=== PATIENT | male | born 1960 | race Caucasian/White ===

== ENCOUNTER 2016-04-04 14:13 | Emergency (ER) | payer MEDICARE ==
--- NOTE | 2016-04-04 14:36 | Emergency Department Record ---
History of Present Illness - General Chief complaint: Eye Problem Stated complaint: L EYE AREA SWOLLEN Time Seen by Provider: 04/04/16 14:28 Source: Patient Mode of Arrival: Ambulatory Limitations: No limitations - History of Present Illness Initial comments: 55 yo male presents with left eye swelling. He woke up with the symptoms. No fevers. He reports he has has some similar symptoms in the past. No vision changes. He does not wear contacts. No FB. MD chief complaint: Eye pain, Eye redness Onset/Timin -: Hour(s) Onset Description: Awoke with symptoms Location: Left eye Place: Home If Injury: None Consistency: Constant Context: Other Associated Symptoms: None Treatments Prior to Arrival: None - Related Data Home Medications Medication Instructions Recorded Confirmed Last Taken Cholecalciferol (Vitamin D3) 2,000 unit PO DAILY 11/04/14 04/04/16 Unknown [Vitamin D3] Multivitamin [Daily Multiple 1 each PO DAILY 11/04/14 04/04/16 Unknown Vitamin] Lactobacillus Combination No.4 1 each PO DAILY cap 07/21/15 04/04/16 Unknown [Probiotic] Previous Rx's Medication Instructions Recorded Cephalexin [Keflex] 500 mg PO TID #21 cap 04/04/16 Allergies Allergy/AdvReac Type Severity Reaction Status Date / Time Sulfa (Sulfonamide Allergy Intermediate RASH Unverified 05/03/15 12:56 Antibiotics) naproxen AdvReac Mild ITCHING Unverified 05/03/15 12:56 Travel Screening - Travel/Exposure Within Last 30 Days Have you traveled within the last 30 days?: No Review of Systems Constitutional: Denies: Chills, Fever, Malaise, Weakness Eyes: Reports: Eye discharge ENT: Denies: Congestion, Ear pain, Epistaxis, Throat pain Respiratory: Denies: Cough, Dyspnea, Hemoptysis, Stridor, Wheezes Cardiovascular: Denies: Chest pain, Palpitations, Syncope Endocrine: Denies: Fatigue Gastrointestinal: Denies: Abdominal pain, Diarrhea, Nausea, Vomiting Genitourinary: Denies: Dysuria, Frequency, Hematuria Musculoskeletal: Denies: Arthralgia, Back pain, Joint swelling, Myalgia Skin: Denies: Bruising, Change in color, Rash Neurological: Denies: Headache Psychiatric: Denies: Anxiety, Suicidal thoughts Hematological/Lymphatic: Denies: Easy bleeding, Easy bruising, Swollen glands Past Medical History - SOCIAL HISTORY Smoking Status: Current every day smoker Alcohol Use: Occassional - RESPIRATORY Hx Respiratory Disorders: Yes Hx COPD: Yes - CARDIOVASCULAR Hx Cardio Disorders: No - NEURO Hx Neuro Disorders: Yes Hx Headaches: Yes (migraines) - GI Hx GI Disorders: No - Hx Genitourinary Disorders: No - ENDOCRINE Hx Endocrine Disorders: Yes Hx Thyroid Disease: Yes (hypo) - MUSCULOSKELETAL Hx Musculoskeletal Disorders: Yes Hx Arthritis: Yes (RA) - PSYCH Hx Psych Problems: No - HEMATOLOGY/ONCOLOGY Hx Hematology/Oncology Disorders: No Family Medical History Any Significant Family History?: No Physical Exam - General General Appearance: Alert, Oriented x3, Cooperative, No acute distress Limitations: No limitations - Head Head exam: Normal inspection - Eye Eye exam: PERRL, Conjunctival injection (very minimal, faint), EOMI, Periorbital swelling. negative: Nystagmus, Periorbital tenderness, Scleral icterus Visual acuity (L) = 20/: 20 Visual acuity (R) = 20/: 20 With correction: Yes IOP measured with: other (no stain uptake on examination) - ENT ENT exam: Normal exam, Mucous membranes moist, Normal external ear exam, Normal orophraynx Ear exam: Normal external inspection. negative: External canal tenderness Nasal Exam: Normal inspection. negative: Discharge, Sinus tenderness Mouth exam: Normal external inspection, Tongue normal Teeth exam: Normal inspection. negative: Dental caries Throat exam: Normal inspection. negative: Tonsillar erythema, Tonsillar exudate Course Vital Signs 04/04/16 14:21 Temperature 98.2 F Pulse Rate 95 H Respiratory 18 Rate Blood Pressure 147/93 Pulse Ox 96 - Reevaluation(s) Reevaluation #1: The patient was seen and examined No stain up take Anterior chamber appears clear Minimal to no injection He has lower lid edema No pus or exudate EOMI fully No right eye involvement VA 20/20 04/04/16 14:38 Disposition Disposition: Discharge Clinical Impression: Acute conjunctivitis Qualifiers: Acute conjunctivitis type: unspecified Laterality: left Qualified Code(s): H10.32 - Unspecified acute conjunctivitis, left eye Disposition: Home, Self-Care Condition: (1) Good Instructions: Conjunctivitis (ED) Additional Instructions: Return in the next 24 hours if worse or not better Use the Antibiotic drops every 4 hours with 2 drops Keflex three times daily Prescriptions: Cephalexin [Keflex] 500 mg PO TID #21 cap Forms: Patient Portal Access Time of Disposition: 14:41
[2016-04-04] MEDS: PROPARACAINE HCL OPTH 15ML BTL OPTH ONE (14:51)
[2016-04-04] MEDS: GENTAMICIN SULFATE 0.3% OPTH 5 ML BTL OPTH SCH (14:51)
== END 2016-04-04 14:53 | disposition home or self-care (01) ==
LOC: ER 14:13
DX: H10.32 Unspecified acute conjunctivitis, left eye (principal)
CPT/HCPCS: 99282

== ENCOUNTER 2018-04-10 13:38 | Emergency (ER) | payer MEDICARE ==
[2018-04-10] MEDS ORDERED: NITROGLYCERIN 0.4MG SL TABLET #25 BTL SL ONE (14:17)
[2018-04-10] MEDS ORDERED: ASPIRIN 81 MG CHEWABLE TABLET PO ONE (14:17)
--- NOTE | 2018-04-10 14:18 | Emergency Department Record ---
History of Present Illness - General Chief complaint: Extremity Problem Stated complaint: LT ARM NUMBNESS AND TINGLING IN THE NECK Time Seen by Provider: 04/10/18 14:11 Source: Patient, RN notes reviewed Mode of Arrival: Ambulatory - History of Present Illness Initial comments: numbness in the jaw and left arm and started 2 days ago and much worse today and he has RA and has chronic chest pain and he thinks his chest pain is inflamation of the ribs and RA. No diaphorisis, No previous heart problems and recently diagnosesed for hypertension. Patient denies being SOB but he sounds SOB. Stopped smoking one year ago. he was smoking 2 plus packs per day for 25 years. slight headache . He states he has carpal tunnel syndrome and his 4th and 5th fingers are chronically numb. Onset/Timin -: Days(s) Location: Left, Arm History of Same: No Radiation: None Consistency: Intermittent Improves with: Nothing Worsens with: Nothing Associated Symptoms: Denies other symptoms - Related Data Allergies Allergy/AdvReac Type Severity Reaction Status Date / Time Sulfa (Sulfonamide Allergy Intermediate RASH Verified 04/10/18 13:46 Antibiotics) naproxen AdvReac Mild ITCHING Verified 04/10/18 13:46 Travel Screening - Travel/Exposure Within Last 30 Days Have you traveled within the last 30 days?: No - Travel/Exposure Within Last Year Have you traveled outside the [place] in the last year?: No - Additonal Travel Details Have you been exposed to anyone with a communicable illness?: No - Travel Symptoms Symptom Screening: None Review of Systems Reviewed: No additional complaints except as noted below Constitutional: Reports: As per HPI. Denies: Chills, Fever, Malaise, Night sweats, Weakness, Weight change Eyes: Reports: As per HPI. Denies: Eye discharge, Eye pain, Photophobia, Vision change ENT: Reports: As per HPI. Denies: Congestion, Dental pain, Ear pain, Epistaxis , Hearing loss, Throat pain Respiratory: Reports: As per HPI. Denies: Cough, Dyspnea, Hemoptysis, Stridor, Wheezes Cardiovascular: Reports: As per HPI, Other (atypical chest pain). Denies: Arrhythmia, Chest pain, Dyspnea on exertion, Edema, Murmurs, Orthopnea, Palpitations, Paroxysmal nocturnal dyspnea, Rheumatic Fever, Syncope Endocrine: Reports: As per HPI. Denies: Fatigue, Heat or cold intolerance, Polydipsia, Polyuria Gastrointestinal: Reports: As per HPI. Denies: Abdominal pain, Constipation, Diarrhea, Hematemesis, Hematochezia, Melena, Nausea, Vomiting Genitourinary: Reports: As per HPI. Denies: Dysuria, Frequency, Hematuria, Incontinence, Retention, Testicular pain, Testicular mass, Urgency Musculoskeletal: Reports: As per HPI. Denies: Arthralgia, Back pain, Gout, Joint swelling, Myalgia, Neck pain Skin: Reports: As per HPI. Denies: Bruising, Change in color, Change in hair/ nails, Lesions, Pruritus, Rash Neurological: Reports: As per HPI. Denies: Abnormal gait, Confusion, Headache, Numbness, Paresthesias, Seizure, Tingling, Tremors, Vertigo, Weakness Psychiatric: Reports: As per HPI. Denies: Anxiety, Auditory hallucinations, Depression, Homicidal thoughts, Suicidal thoughts, Visual hallucinations Hematological/Lymphatic: Reports: As per HPI. Denies: Anemia, Blood Clots, Easy bleeding, Easy bruising, Swollen glands Past Medical History - SOCIAL HISTORY Smoking Status: Former smoker Alcohol Use: Heavy Drug Use: None - RESPIRATORY Hx Respiratory Disorders: Yes Hx COPD: Yes - CARDIOVASCULAR Hx Cardio Disorders: No - NEURO Hx Neuro Disorders: Yes Hx Headaches: Yes (migraines) - GI Hx GI Disorders: No - Hx Genitourinary Disorders: No - ENDOCRINE Hx Endocrine Disorders: Yes Hx Thyroid Disease: Yes (hypo) - MUSCULOSKELETAL Hx Musculoskeletal Disorders: Yes Hx Arthritis: Yes (RA) - PSYCH Hx Psych Problems: No - HEMATOLOGY/ONCOLOGY Hx Hematology/Oncology Disorders: No Family Medical History Any Significant Family History?: No Physical Exam - General General Appearance: Alert, Oriented x3, Cooperative, No acute distress - Head Head exam: Normal inspection - Eye Eye exam: Normal appearance, PERRL Pupils: Normal accommodation - ENT ENT exam: Normal exam, Mucous membranes moist, Normal external ear exam, Normal orophraynx, TM's normal bilaterally Ear exam: Normal external inspection. negative: External canal tenderness Nasal Exam: Normal inspection. negative: Discharge, Sinus tenderness Mouth exam: Normal external inspection, Tongue normal Teeth exam: Normal inspection. negative: Dental caries Throat exam: Normal inspection. negative: Tonsillar erythema, Tonsillar exudate - Neck Neck exam: Normal inspection, Full ROM. negative: Tenderness - Respiratory Respiratory exam: Normal lung sounds bilaterally. negative: Respiratory distress - Cardiovascular Cardiovascular Exam: Regular rate, Normal rhythm, Normal heart sounds, Other ( pain on palpation of anterior chest wall and he said that is arthritis) - GI/Abdominal GI/Abdominal exam: Soft, Normal bowel sounds. negative: Tenderness - Rectal Rectal exam: Deferred - exam: Deferred - Extremities Extremities exam: Normal inspection, Full ROM, Normal capillary refill. negative: Tenderness - Back Back exam: Reports: Normal inspection, Full ROM. Denies: Muscle spasm, Rash noted, Tenderness - Neurological Neurological exam: Alert, Normal gait, Oriented X3, Reflexes normal - Psychiatric Psychiatric exam: Normal affect, Normal mood - Skin Skin exam: Dry, Intact, Normal color, Warm Course Vital Signs 04/10/18 13:49 Temperature 98.1 F Pulse Rate 110 H Respiratory 20 Rate Blood Pressure 154/71 Pulse Ox 96 patient is refusing to stay any longer and I talked to him about the risk of a heart attack and he could are be a cardiac cripple and he said he will come back as an out patient.. I also told if his neck numbness and laft arm numbness comes back return to [facility] ED. The one nitro took his jaw numbness and left arm numbness away. Medical Decision Making - Lab Data Result diagrams: 04/10/18 13:50 04/10/18 13:50 Disposition Clinical Impression: Atypical chest pain Disposition: Home, Self-Care Condition: (1) Good Instructions: Angina (ED) Additional Instructions: follow up with family DR in 2-[address] Paredes consult outpatient will be set up and they will call you with an appointment return if numbness comes back patient is signing out AMA Forms: Patient Portal Access Time of Disposition: 17:17 Quality - Quality Measures Quality Measures: N/A - Blood Pressure Screening Does Patient Have Any of the Following: No, Active Dx of HTN Blood Pressure Classification: Hypertensive Reading Systolic Measurement: 154 Diastolic Measurement: 71 Screening for High Blood Pressure: Patient Exclusion, Hx of HTN [G9744]
[2018-04-10 15:03] LABS: BASO % 0.6 % (0-6); EOS % 1.3 % (0-6); LYMPH % 20.6 % (16-45); MEAN CELL VOLUME 90.2 fl (81-97); MEAN CORPUSCULAR HEMOGLOBIN 30.7 pg (27-33); MEAN PLATELET VOLUME 9.8 fl (7.4-10.4); MONO % 9.5 % (0-9); PLATELET COUNT 237 K/uL (130-400); RED BLOOD COUNT 5.21 M/uL (4.40-5.70); RED CELL DISTRIBUTION WIDTH 13.1 % (11.5-14.5); WHITE BLOOD COUNT W/O DIFF 7.9 K/uL (4.2-12.2)
[2018-04-10 15:15] LABS: BLOOD UREA NITROGEN 13 mg/dL (6-20); CREATININE 0.8 mg/dL (0.7-1.2); EST GLOMERULAR FILTRATION RATE > 60 mL/min
[2018-04-10 15:18] LABS: GLUCOSE,RANDOM 161 mg/dL (74-109)
[2018-04-10 15:23] LABS: CKMB 2.3 ng/mL (<6.73)
== END 2018-04-10 17:51 | disposition home or self-care (01) ==
LOC: ER 13:38
DX: R07.89 Other chest pain (principal); R20.0 Anesthesia of skin; R51 Headache; I10 Essential (primary) hypertension; Z87.891 Personal history of nicotine dependence; M06.9 Rheumatoid arthritis, unspecified; J44.9 Chronic obstructive pulmonary disease, unspecified
CPT/HCPCS: 80048; 80320; 82553; 84484; 85025; 85730; 93005; 93010; 99284

== ENCOUNTER 2018-08-03 07:17 | Emergency (ER) | payer MEDICARE ==
[2018-08-03] MEDS ORDERED: METHYLPREDNISOLONE PF 125MG/VIAL IVP ONE (07:25)
[2018-08-03] MEDS ORDERED: 0.9 % SODIUM CHLORIDE 1,000 ML BAG IV ONE (07:25)
[2018-08-03] MEDS ORDERED: ORPHENADRINE CITRATE 60MG/2ML VIAL IM ONE (07:31)
[2018-08-03] MEDS ORDERED: ACETAMINOPHEN 1,000 MG/100 ML BTL IVPB ONE (07:31)
--- NOTE | 2018-08-03 07:36 | Emergency Department Record ---
History of Present Illness - General Chief complaint: Pain Stated complaint: UNABLE TO MOVE RT ARM/ROBERTSON Time Seen by Provider: 08/03/18 07:23 Source: Patient Mode of Arrival: Ambulatory Limitations: No limitations - History of Present Illness Initial comments: 57 yo male presents with pain from the base of his skull on the right all the way down the right arm. He woke up with the pain yesterday. No numbness but the arm has become weak with lifting to the point where he can not lift it up. He can not abduct or flex at the shoulder due to weakness. The symptoms gradually worsened throughout the day. It hurts to palpate anywhere from the right occipital area to the trapezius area, shoulder and deltoid. He states it hurts to turn his head or move in any direction. No swelling. No warmth or coolness. No rash. No changes in hand sensation. 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 He has RA but states this is not consistent with his RA. He has significant cervical disease but states this is different as well. He took his Hydrocone/Ibuprofen without relief. No cough, chest pain, nausea, vomiting, diarrhea, recent illness. He thinks when he woke up yesterday he had a fever but did not take a temperature. MD Complaint: Extremity pain, Joint pain -: Days(s) (1) Location: Right -: Yes Arthralgia, Yes Myalgia Radiation: Distal Quality: Aching Consistency: Constant Improves with: Nothing Worsens with: Palpation, Weight bearing Associated Symptoms: Denies other symptoms, Arthralgias, Fever, Myalgias - Related Data Previous Rx's Medication Instructions Recorded Methylprednisolone [Medrol Dose 4 mg PO DAILY #1 tab.ds.pk 08/03/18 Pack] Allergies Allergy/AdvReac Type Severity Reaction Status Date / Time Sulfa (Sulfonamide Allergy Intermediate RASH Verified 08/03/18 08:18 Antibiotics) naproxen AdvReac Mild ITCHING Verified 08/03/18 08:18 Review of Systems Constitutional: Reports: Fever (subjective when he woke up yesterday. none since and no measured temp). Denies: Chills, Malaise, Night sweats, Weakness Eyes: Denies: Eye discharge, Eye pain, Photophobia ENT: Denies: Congestion, Ear pain, Epistaxis, Throat pain Respiratory: Denies: Cough, Dyspnea Cardiovascular: Denies: Chest pain, Palpitations, Syncope Endocrine: Denies: Fatigue, Polydipsia, Polyuria Gastrointestinal: Denies: Abdominal pain, Diarrhea, Nausea, Vomiting Genitourinary: Denies: Dysuria, Frequency, Hematuria Musculoskeletal: Reports: Arthralgia, Myalgia, Neck pain. Denies: Joint swelling Skin: Denies: Bruising, Change in color, Rash Neurological: Reports: Headache (occipital), Weakness. Denies: Abnormal gait, Confusion, Numbness, Paresthesias, Seizure, Tingling, Tremors, Vertigo Psychiatric: Denies: Anxiety Hematological/Lymphatic: Denies: Blood Clots, Easy bleeding, Easy bruising, Swollen glands Past Medical History - SOCIAL HISTORY Smoking Status: Former smoker Drug Use: None - RESPIRATORY Hx Respiratory Disorders: Yes Hx COPD: Yes - CARDIOVASCULAR Hx Cardio Disorders: No - NEURO Hx Neuro Disorders: Yes Hx Headaches: Yes (migraines) - GI Hx GI Disorders: No - Hx Genitourinary Disorders: No - ENDOCRINE Hx Endocrine Disorders: Yes Hx Thyroid Disease: Yes (hypo) - MUSCULOSKELETAL Hx Musculoskeletal Disorders: Yes Hx Arthritis: Yes (RA) - PSYCH Hx Psych Problems: No - HEMATOLOGY/ONCOLOGY Hx Hematology/Oncology Disorders: No Physical Exam - General General Appearance: Alert, Oriented x3, Cooperative, No acute distress Limitations: No limitations - Head Head exam: Atraumatic, Normocephalic, Normal inspection Head exam detail: Abrasion, Contusion. negative: Hematoma - Eye Eye exam: Normal appearance, PERRL. negative: Conjunctival injection, Scleral icterus - ENT ENT exam: Normal exam, Mucous membranes moist, Normal orophraynx Ear exam: Normal external inspection Nasal Exam: Normal inspection Mouth exam: Normal external inspection Teeth exam: Normal inspection Throat exam: Normal inspection - Neck Neck exam: Normal inspection, Tenderness (tenderness right occipital, paraspinal, into the shoulder). negative: Full ROM, Lymphadenopathy, Meningismus - Respiratory Respiratory exam: Normal lung sounds bilaterally. negative: Chest wall tenderness, Respiratory distress - Cardiovascular Cardiovascular Exam: Regular rate, Normal rhythm, Normal heart sounds Peripheral Pulses: 2+: Radial (R) - GI/Abdominal GI/Abdominal exam: Soft. negative: Tenderness - Rectal Rectal exam: Deferred - exam: Deferred - Extremities Extremities exam: Normal inspection, Normal capillary refill, Tenderness, Other (The patient has pain from the base of the skull to the the elbow on palpation, no abnormal warmth, swelling, abnormal coolness, rash, or visible abnormality. 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 Intact radial medial and ulnar motor motions but slower and weaker at the hand, unable to lift his arm above gravity). negative: Full ROM, Joint swelling - Back Back exam: Reports: Normal inspection, Tenderness - Neurological Neurological exam: Alert, CN II-XII intact, Motor sensory deficit (utility systems repairer operator is weak markedly comparted to the left, He is unable to raise his arm at the shoulder or over come gravity keeping the forearm raised), Normal gait, Oriented X3. negative: Abnormal gait, Altered - Psychiatric Psychiatric exam: Normal affect, Normal mood. negative: Agitated, Anxious - Skin Skin exam: Dry, Intact, Normal color, Warm. negative: Erythema Course - Reevaluation(s) Reevaluation #1: 08/03/18 07:39 Vitals reviewed No acute abnormality The neurologic examination is intact The patient does not have any outward physical findings that are abnormal No signs of infection. No signs of swelling. Strong pulses. Normal soft muscles. 08/03/18 08:10 The WBC is 13.8 The CRP is 10 08/03/18 08:[address] and XR results The patient was re-examined. 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 He is still unable to lift his forearm off his lap, unable to flex his biceps to lift his forearm, unable to abduct or flex the arm to the side or forward due to weakness 08/03/18 08:53 ESR is 65 08/03/18 08:59 The HCT is negative for acute process 08/03/18 09:01 Mild degenerative changes noted of the shoulder with small round calcification of the coraco-clavicular ligament 08/03/18 09:[address] demonstrates multilevel degenerative changes, mild central canal stenosis, multilevel foraminal stenosis most noted on the Left. No prevertebral soft tissue swelling. 08/03/18 09:29 I explained all the relevant tests results. The patient is having improving ROM and improved symptoms. I recommended I now transfer him for additional tests or consultations for his symptoms of weakness, pain, abnormal lab tests. I explained a specific diagnosis has not been established and this is something that could be serious, worsen, cause a permanent injury or disability. He states he clearly understands but due to home responsibilities he will be consent to transfer for further work up. I explained the AMA signing process that he understands the risks of delays, or missed opportunity to refer him for specialist consultation and additional work up. He still will sign out and clearly understands my concerns and the process of signing out. He will go to a large hospital ED if he changes his mind or worse. Medical Decision Making - Lab Data Result diagrams: 08/03/18 07:40 08/03/18 07:40 Disposition Disposition: Discharge Clinical Impression: Right arm weakness, Neck pain Disposition: Against Medical Advice Condition: (3) Guarded Instructions: Cervical Radiculopathy (ED), Against Medical Advice (ED) Additional Instructions: You are signing out AMA today I advise your either go to a larger hospital for MRI and specialist consultation or return at any time Use the sling for comfort Follow up as scheduled with your doctor as scheduled this week Prescriptions: Methylprednisolone [Medrol Dose Pack] 4 mg PO DAILY #1 tab.ds.pk Forms: Patient Portal Access Time of Disposition: 09:29 Quality - Quality Measures Quality Measures: N/A - Blood Pressure Screening Does Patient Have Any of the Following: Active Dx of HTN Blood Pressure Classification: Pre-Hypertensive BP Reading Systolic Measurement: 133 Diastolic Measurement: 62 Screening for High Blood Pressure: Patient Exclusion, Hx of HTN [G9744]
[2018-08-03 07:47] LABS: HEMOGLOBIN 15.2 gm/dl (14.0-18.0); MEAN CELL VOLUME 87.8 fl (81-97); MEAN CORPUSCULAR HEMOGLOBIN 30.3 pg (27-33); MEAN CORPUSCULAR HGB CONC 34.5 g/dl (32-36); MEAN PLATELET VOLUME 9.2 fl (7.4-10.4); PLATELET COUNT 192 K/uL (130-400); RED BLOOD COUNT 5.01 M/uL (4.40-5.70); RED CELL DISTRIBUTION WIDTH 13.1 % (11.5-14.5); WHITE BLOOD COUNT W/O DIFF 13.9 K/uL (4.2-12.2)
[2018-08-03 08:00] LABS: BLOOD UREA NITROGEN 8 mg/dL (6-20); CREATININE 0.7 mg/dL (0.7-1.2); EST GLOMERULAR FILTRATION RATE > 60 mL/min
[2018-08-03 08:01] LABS: TOTAL PROTEIN 8.1 g/dL (6.6-8.7)
[2018-08-03 08:03] LABS: GLUCOSE,RANDOM 208 mg/dL (74-109)
[2018-08-03 08:05] LABS: ALB/GLOB RATIO 1.2 (1.1-1.8); ALBUMIN 4.4 g/dL (4.0-5.0); ALKALINE PHOSPHATASE 81 U/L (40-129); ALT/SGPT 45 U/L (<41); AST/SGOT 48 U/L (10.0-50.0)
[2018-08-03 08:06] LABS: C-REACTIVE PROTEIN 10.18 mg/dL (<0.5)
[2018-08-03 08:13] LABS: ABSOLUTE NEUTROPHIL COUNT 10.84
[2018-08-03 08:47] LABS: ERYTHROCYTE SEDIMENTATION RATE 65 mm/hr (0-20)
--- NOTE | 2018-08-05 19:38 | CT SCAN REPORT ---
EXAM: CT SCAN CERVICAL SPINE WO CONTRAST HISTORY: UNABLE TO MOVE RIGHT ARM FOR LAST 24 HOURS. TECHNIQUE: Thin-collimation helical CT examination of the cervical spine is performed without intravenous contrast in the axial plane. Coronal and sagittal reformatted images are generated and reviewed. COMPARISON: Radiographic examination of the cervical spine dated 03/10/2009. FINDINGS: There is normal bone mineralization. There is straightening of the normal cervical lordosis, likely due to positioning or muscle spasm. The vertebral bodies are otherwise normal in alignment and height. No acute fracture, suspicious destructive bone lesion, or prevertebral soft tissue swelling. There is a small lytic area within the left lateral mass of C4 with extension to the posterior margin of the superior facet. This measures 8 x 6 mm. It is likely a degenerative cyst. Multilevel degenerative disc/degenerative endplate changes are identified, most pronounced at the C4-C5, C5-C6, and C6-C7 levels, where the changes are mild to moderate in degree. 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 This combined with superimposed mild degenerative disc changes causes borderline to mild central canal stenosis throughout much of the cervical spine. Multilevel uncovertebral joint spurring and facet degenerative changes are noted bilaterally. The facet degenerative changes are most pronounced on the left at the C3-C4 level. Multilevel neural foraminal narrowing is present due to uncovertebral joint and facet joint spurring. This is most pronounced on the left at the C3-C4 and C4-C5 levels, where the narrowing is moderate to severe. It is mild elsewhere. No cervical mass nor adenopathy. The lung apices are clear. There is atherosclerotic calcification of the carotid bifurcations, mild to moderate in degree. There are impacted bilateral maxillary wisdom teeth. IMPRESSION: 1. NO ACUTE FRACTURE, SUBLUXATION, NOR PREVERTEBRAL SOFT TISSUE SWELLING. 2. MULTILEVEL DEGENERATIVE CHANGES COMBINING WITH CONGENITAL CANAL NARROWING TO CAUSE BORDERLINE TO MILD CENTRAL CANAL STENOSIS THROUGHOUT MUCH OF THE CERVICAL SPINE. 3. MULTILEVEL BILATERAL NEURAL FORAMINAL NARROWING OF VARYING DEGREES SECONDARY TO UNCOVERTEBRAL JOINT AND FACET JOINT SPURRING. THIS IS MOST PRONOUNCED ON THE LEFT AT THE L3-L4 AND L4-L5 LEVELS, WHERE THE NARROWING IS AT LEAST MODERATE IN DEGREE. 4. SMALL CYSTIC AREA WITHIN THE LEFT LATERAL MASS OF C4 CONTIGUOUS WITH THE SUPERIOR FACET, LIKELY DEGENERATIVE. JOB NUMBER: [id number] [facility]
--- NOTE | 2018-08-06 05:15 | CT SCAN REPORT ---
EXAM: CT OF THE BRAIN WITHOUT CONTRAST HISTORY: OCCIPITAL PAIN. UNABLE TO MOVE RIGHT ARM FOR THE LAST TWENTY-FOUR HOURS. TECHNIQUE: Routine noncontrast CT of the brain was obtained. Comparison: No prior imaging of the brain available for comparison. Same day noncontrast CT of the cervical spine. FINDINGS: The ventricles and subarachnoid spaces are normal in size for age. Benign bilateral basal ganglia calcification is present. No suspicious area of abnormally increased or decreased attenuation is noted throughout the brain substance. No abnormal extraaxial fluid collection is seen. No acute skull abnormality. There is a retention cyst or polyp within a single posterior right ethmoid air cell. The visualized paranasal sinuses and mastoid air cells are otherwise clear. The orbits as visualized are unremarkable. There are degenerative changes of the atlantodental joint. IMPRESSION: 1. NO CT EVIDENCE OF AN ACUTE INTRACRANIAL ABNORMALITY. 2. RETENTION CYST VERSUS POLYP WITHIN A SINGLE POSTERIOR RIGHT ETHMOID AIR CELL. JOB NUMBER: [id number] [facility]
--- NOTE | 2018-08-06 05:28 | RADIOLOGY REPORT ---
DATE: 08/03/2018 at 0757. EXAM: RIGHT SHOULDER, COMPLETE. HISTORY: UNABLE TO MOVE RIGHT ARM FOR ONE DAY. TECHNIQUE: Internal and external humerus rotation AP views of the right shoulder are obtained. COMPARISON: Two-view chest radiographic examination dated 03/10/2009. ENCOUNTER: Initial. FINDINGS: There is normal bone mineralization. No acute fracture, dislocation, or destructive bone lesion is seen. Early osteoarthritic changes of the glenohumeral joint are suspected. Mild hypertrophic change of the acromioclavicular joint also noted. There is calcific density projecting near the inferior margin of the distal clavicle. This is nonspecific though may relate to calcification of the coracoclavicular ligament. IMPRESSION: 1. NO ACUTE BONE NOR JOINT ABNORMALITY. 2. MILD DEGENERATIVE CHANGES. 3. SMALL NODULAR CALCIFIC DENSITY PROJECTING ADJACENT TO THE INFERIOR MARGIN OF THE DISTAL CLAVICLE MEASURING 6.0 X 8.0 MM. THIS IS NONSPECIFIC THOUGH MAY REPRESENT CALCIFICATION WITHIN THE CORACOCLAVICULAR LIGAMENT. Job Number: [id number] [facility]
== END 2018-08-03 09:51 | disposition left against medical advice (07) ==
LOC: ER 07:17
DX: M62.81 Muscle weakness (generalized) (principal); M25.511 Pain in right shoulder; M54.2 Cervicalgia; R51 Headache; J44.9 Chronic obstructive pulmonary disease, unspecified; Z87.891 Personal history of nicotine dependence
CPT/HCPCS: 70450; 72125; 80053; 85027; 85651; 86140; 96372; 96374; 99284; J2360; J2930; J7030

== ENCOUNTER 2018-08-04 15:29 | Emergency (ER) | payer MEDICARE ==
[2018-08-04] MEDS ORDERED: HYDROMORPHONE HCL 2 MG/ML VIAL IVP ONE (15:38)
--- NOTE | 2018-08-04 15:43 | Emergency Department Record ---
History of Present Illness - General Chief Complaint: Back Pain/Injury Stated Complaint: HEAB, SHOULDER BACK PAIN Time Seen by Provider: 08/04/18 15:36 Source: Patient Mode of Arrival: Ambulatory Limitations: No limitations - History of Present Illness Initial Comments: 57 yo male who signed out against medical advice yesterday returns today for evaluation. He has had two days of neck pain, shoulder pain and not been able to lift his right arm due to weakness and pain. He had a Head CT, Cervical CT, and shoulder XR yesterday in the [facility] ED. It was recommended he be transferred to [facility] for further work up and possible specialist consultation. He declined and signed out AMA. Since yesterday his immobility and pain in right neck through the shoulder has worsened. He is still unable to lift the arm due to pain and weakness. The right lateral neck pain is worse. MD Complaint: Other (Neck pain, shoulder pain) -: Days(s) Place: Home Radiation: Other (RUE) Quality: Aching, Sharp, Stabbing Consistency: Constant Improves With: None Worsens With: Movement Context: Other (Awoke initially with the symptoms) - Related Data Previous Rx's Medication Instructions Recorded Methylprednisolone [Medrol Dose 4 mg PO DAILY #1 tab.ds.pk 08/03/18 Pack] Allergies Allergy/AdvReac Type Severity Reaction Status Date / Time Sulfa (Sulfonamide Allergy Intermediate RASH Verified 08/03/18 08:18 Antibiotics) naproxen AdvReac Mild ITCHING Verified 08/03/18 08:18 Review of Systems Constitutional: Reports: Fever (subjective), Weakness. Denies: Chills, Malaise, Night sweats Eyes: Denies: Eye discharge ENT: Denies: Congestion, Throat pain Respiratory: Denies: Cough, Dyspnea, Hemoptysis, Stridor, Wheezes Cardiovascular: Denies: Chest pain, Palpitations, Syncope Endocrine: Denies: Fatigue Gastrointestinal: Denies: Abdominal pain, Constipation, Nausea, Vomiting Genitourinary: Denies: Dysuria, Frequency, Hematuria Musculoskeletal: Reports: Arthralgia, Myalgia, Neck pain Skin: Denies: Bruising, Change in color, Rash Neurological: Reports: Weakness. Denies: Headache, Numbness, Tremors, Vertigo Psychiatric: Denies: Anxiety Hematological/Lymphatic: Denies: Easy bleeding, Easy bruising, Swollen glands Past Medical History - SOCIAL HISTORY Smoking Status: Former smoker Drug Use: None - RESPIRATORY Hx Respiratory Disorders: Yes Hx COPD: Yes - CARDIOVASCULAR Hx Cardio Disorders: No - NEURO Hx Neuro Disorders: Yes Hx Headaches: Yes (migraines) - GI Hx GI Disorders: No - Hx Genitourinary Disorders: No - ENDOCRINE Hx Endocrine Disorders: Yes Hx Thyroid Disease: Yes (hypo) - MUSCULOSKELETAL Hx Musculoskeletal Disorders: Yes Hx Arthritis: Yes (RA) - PSYCH Hx Psych Problems: No - HEMATOLOGY/ONCOLOGY Hx Hematology/Oncology Disorders: No Physical Exam - General General Appearance: Alert, Oriented x3, Cooperative, No acute distress Limitations: No limitations - Head Head exam: Atraumatic, Normocephalic, Normal inspection - Eye Eye exam: Normal appearance, PERRL, Conjunctival injection - ENT ENT exam: Normal exam, Mucous membranes moist, Normal orophraynx Ear exam: Normal external inspection Nasal Exam: Normal inspection Mouth exam: Normal external inspection Throat exam: Normal inspection - Neck Neck exam: Normal inspection, Other (Tender right paraspinal, right lateral to any palpation). negative: Full ROM - Respiratory Respiratory exam: Normal lung sounds bilaterally. negative: Respiratory distress - Cardiovascular Cardiovascular Exam: Regular rate, Normal rhythm, Normal heart sounds Peripheral Pulses: 2+: Radial (R) - GI/Abdominal GI/Abdominal exam: Soft. negative: Tenderness - Rectal Rectal exam: Deferred - exam: Deferred - Extremities Extremities exam: Tenderness. 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 negative: Altered - Psychiatric Psychiatric exam: Normal affect, Normal mood. negative: Agitated, Anxious - Skin Skin exam: Dry, Intact, Normal color, Warm Course - Reevaluation(s) Reevaluation #1: The patient is clinically worse today I recommend repeating the labs and calling [facility] call for transfer for further work up The patient today is in agreement and states he will not sign out AMA again 08/04/18 15:44 08/04/18 15:[address] Melchor of [facility] ED He accepts the patient for transfer He requests antibiotics to be started prior to transfer with Cefepime and Vancomycin Medical Decision Making - Lab Data Result diagrams: 08/04/18 15:45 08/04/18 15:45 Disposition Disposition: Transfer Clinical Impression: Right arm weakness, Neck pain, Shoulder pain, acute, Acute cervical radiculopathy Disposition: Acute Care Hospital Transfer Transfer To: [facility] Reason For Transfer: Unable to lift RUE, Weak, pain Accepting Physician: Jill Time Discussed w/Accepting Physician: 15:54 Condition: (2) Stable Forms: Patient Portal Access Time of Disposition: 15:46 Quality - Quality Measures Quality Measures: N/A - Blood Pressure Screening Does Patient Have Any of the Following: No Blood Pressure Classification: Normal BP Reading Systolic Measurement: 118 Diastolic Measurement: 72 Screening for High Blood Pressure: < Normal BP, F/U Not Required > [G8783]
[2018-08-04 15:52] LABS: ABSOLUTE NEUTROPHIL COUNT 14.64; BASO % 0.1 % (0-6); HEMATOCRIT 40.7 % (42.0-52.0); LYMPH % 4.9 % (16-45); MEAN CELL VOLUME 87.5 fl (81-97); MEAN CORPUSCULAR HEMOGLOBIN 30.1 pg (27-33); MEAN CORPUSCULAR HGB CONC 34.4 g/dl (32-36); MEAN PLATELET VOLUME 9.4 fl (7.4-10.4); MONO % 6.1 % (0-9); PLATELET COUNT 178 K/uL (130-400); RED BLOOD COUNT 4.65 M/uL (4.40-5.70); RED CELL DISTRIBUTION WIDTH 13.1 % (11.5-14.5); WHITE BLOOD COUNT W/O DIFF 16.5 K/uL (4.2-12.2)
[2018-08-04] MEDS ORDERED: VANCOMYCIN HCL 1,500 MG in 0.9 % SODIUM CHLORIDE 500ML 500 ML IVPB ONE (15:52)
[2018-08-04] MEDS ORDERED: CEFEPIME HCL 2 GM in 0.9 % SODIUM CHLORIDE 100ML 100 ML IVPB ONE (15:52)
[2018-08-04 16:06] LABS: BLOOD UREA NITROGEN 12 mg/dL (6-20)
[2018-08-04 16:07] LABS: CREATININE 0.7 mg/dL (0.7-1.2); EST GLOMERULAR FILTRATION RATE > 60 mL/min
[2018-08-04 16:09] LABS: GLUCOSE,RANDOM 249 mg/dL (74-109)
[2018-08-04 16:12] LABS: C-REACTIVE PROTEIN 29.92 mg/dL (<0.5)
[2018-08-04 16:34] LABS: ERYTHROCYTE SEDIMENTATION RATE 82 mm/hr (0-20)
== END 2018-08-04 16:30 | disposition short-term general hospital (02) ==
LOC: ER 15:29
DX: R29.898 Other symptoms and signs involving the musculoskeletal system (principal); M54.12 Radiculopathy, cervical region; M25.511 Pain in right shoulder; M54.2 Cervicalgia; J44.9 Chronic obstructive pulmonary disease, unspecified; Z87.891 Personal history of nicotine dependence
CPT/HCPCS: 99285 ×2; 96374; 96375; 85651; 86140; 80048; 85027; J3370; J1170; J7040

== ENCOUNTER 2018-08-10 11:47 | Emergency (ER) | payer MEDICARE ==
[2018-08-10] MEDS ORDERED: DILTIAZEM 25MG/5ML VIAL IV ONE ×2 (12:08→12:39)
[2018-08-10] MEDS ORDERED: LORAZEPAM 2 MG/ML VIAL IV ONE (12:19)
--- NOTE | 2018-08-10 12:20 | Emergency Department Record ---
History of Present Illness - General Chief complaint: Weakness Stated complaint: SOB, FATIGUE,HEART ISSUE Time Seen by Provider: 08/10/18 12:05 Source: Patient Mode of Arrival: Ambulatory Limitations: No limitations - History of Present Illness Initial comments: pt has been feeling weak and like he has an irregular hr for 2 days. he has never had anything like this before. he was recenly hospitalized for a neck abscess. MD Complaint: Generalized weakness Onset/Timin -: Days(s) Severity: Mild Consistency: Constant Improves with: None Worsens with: None Associated Symptoms: Shortness of breath - [place] Coma Scale Eye Response: (4) Open spontaneously Motor Response: (6) Obeys commands Verbal Response: (5) Oriented [place] Total: 15 - Symptoms of Stroke Symptoms of stroke: Dizziness - Related Data Allergies Allergy/AdvReac Type Severity Reaction Status Date / Time Sulfa (Sulfonamide Allergy Intermediate RASH Unverified 08/08/18 13:18 Antibiotics) naproxen AdvReac Mild ITCHING Unverified 08/08/18 13:18 Travel Screening - Travel/Exposure Within Last 30 Days Have you traveled within the last 30 days?: No - Travel/Exposure Within Last Year Have you traveled outside the [place] in the last year?: No - Additonal Travel Details Have you been exposed to anyone with a communicable illness?: No - Travel Symptoms Symptom Screening: Fatigue Review of Systems Reviewed: No additional complaints except as noted below Constitutional: Reports: As per HPI. Denies: Chills, Fever, Malaise, Night sweats, Weakness, Weight change Eyes: Reports: As per HPI. Denies: Eye discharge, Eye pain, Photophobia, Vision change ENT: Reports: As per HPI. Denies: Congestion, Dental pain, Ear pain, Epistaxis, Hearing loss, Throat pain Respiratory: Reports: As per HPI. Denies: Cough, Dyspnea, Hemoptysis, Stridor, Wheezes Cardiovascular: Reports: As per HPI, Arrhythmia. Denies: Chest pain, Dyspnea on exertion, Edema, Murmurs, Orthopnea, Palpitations, Paroxysmal nocturnal dyspnea, Rheumatic Fever, Syncope Endocrine: Reports: As per HPI. Denies: Fatigue, Heat or cold intolerance, Polydipsia, Polyuria Gastrointestinal: Reports: As per HPI. Denies: Abdominal pain, Constipation, Diarrhea, Hematemesis, Hematochezia, Melena, Nausea, Vomiting Genitourinary: Reports: As per HPI. Denies: Dysuria, Frequency, Hematuria, Incontinence, Retention, Testicular pain, Testicular mass, Urgency Musculoskeletal: Reports: As per HPI. Denies: Arthralgia, Back pain, Gout, Joint swelling, Myalgia, Neck pain Skin: Reports: As per HPI. Denies: Bruising, Change in color, Change in hair/ nails, Lesions, Pruritus, Rash Neurological: Reports: As per HPI. Denies: Abnormal gait, Confusion, Headache, Numbness, Paresthesias, Seizure, Tingling, Tremors, Vertigo, Weakness Psychiatric: Reports: As per HPI. Denies: Anxiety, Auditory hallucinations, Depression, Homicidal thoughts, Suicidal thoughts, Visual hallucinations Hematological/Lymphatic: Reports: As per HPI. Denies: Anemia, Blood Clots, Easy bleeding, Easy bruising, Swollen glands Past Medical History - SOCIAL HISTORY Smoking Status: Former smoker Alcohol Use: Occasional Drug Use: None - RESPIRATORY Hx Respiratory Disorders: Yes Hx COPD: Yes - CARDIOVASCULAR Hx Cardio Disorders: No - NEURO Hx Neuro Disorders: Yes Hx Headaches: Yes (migraines) - GI Hx GI Disorders: No - Hx Genitourinary Disorders: No - ENDOCRINE Hx Endocrine Disorders: Yes Hx Thyroid Disease: Yes (hypo) - MUSCULOSKELETAL Hx Musculoskeletal Disorders: Yes Hx Arthritis: Yes (RA) - PSYCH Hx Psych Problems: No - HEMATOLOGY/ONCOLOGY Hx Hematology/Oncology Disorders: No Family Medical History Any Significant Family History?: No Physical Exam - General General Appearance: Alert, Oriented x3, Cooperative, Mild distress - Head Head exam: Normal inspection - Eye Eye exam: Normal appearance, PERRL, EOMI Pupils: Normal accommodation - ENT ENT exam: Normal exam, Mucous membranes moist, Normal external ear exam, Normal orophraynx, TM's normal bilaterally Ear exam: Normal external inspection. negative: External canal tenderness Nasal Exam: Normal inspection. negative: Discharge, Sinus tenderness Mouth exam: Normal external inspection, Tongue normal Teeth exam: Normal inspection. negative: Dental caries Throat exam: Normal inspection. negative: Tonsillar erythema, Tonsillar exudate - Neck Neck exam: Normal inspection, Full ROM. negative: Tenderness - Respiratory Respiratory exam: Normal lung sounds bilaterally. negative: Respiratory distress - Cardiovascular Cardiovascular Exam: Irregular rhythm, Tachycardia - GI/Abdominal GI/Abdominal exam: Soft, Normal bowel sounds. negative: Tenderness - Rectal Rectal exam: Deferred - exam: Deferred - Extremities Extremities exam: Normal inspection, Full ROM, Normal capillary refill. negative: Tenderness - Back Back exam: Reports: Normal inspection, Full ROM. Denies: Muscle spasm, Rash noted, Tenderness - Neurological Neurological exam: Alert, CN II-XII intact, Normal gait, Oriented X3 - Psychiatric Psychiatric exam: Normal affect, Normal mood - Skin Skin exam: Dry, Intact, Normal color, Warm Course Vital Signs 08/10/18 11:54 Temperature 97.7 F Pulse Rate 159 H Respiratory 24 Rate Blood Pressure 94/83 Pulse Ox 97 - Reevaluation(s) Reevaluation #1: 08/10/18 14:03 pt rate slowed after 2 boluses Medical Decision Making - Lab Data Result diagrams: 08/10/18 12:29 08/10/18 12:29 Disposition Disposition: Transfer Clinical Impression: New onset atrial flutter Disposition: Acute Care Hospital Transfer Transfer To: [facility] Reason For Transfer: needs cardiology Accepting Physician: dr villalta Time Discussed w/Accepting Physician: 14:00 Forms: Patient Portal Access Quality - Quality Measures Quality Measures: N/A - Blood Pressure Screening Does Patient Have Any of the Following: No Blood Pressure Classification: Pre-Hypertensive BP Reading Systolic Measurement: 94 Diastolic Measurement: 83 Screening for High Blood Pressure: < Pre-Hypertensive BP, F/U Documented > [G8950] Pre-Hypertensive Follow-up Interventions: Follow-up with rescreen every year.
[2018-08-10 12:34] LABS: ABSOLUTE NEUTROPHIL COUNT 9.61; HEMATOCRIT 41.3 % (42.0-52.0); HEMOGLOBIN 13.5 gm/dl (14.0-18.0); MEAN CORPUSCULAR HEMOGLOBIN 29.4 pg (27-33); MEAN CORPUSCULAR HGB CONC 32.7 g/dl (32-36); MEAN PLATELET VOLUME 9.2 fl (7.4-10.4); PLATELET COUNT 429 K/uL (130-400); RED BLOOD COUNT 4.59 M/uL (4.40-5.70); WHITE BLOOD COUNT W/O DIFF 12.3 K/uL (4.2-12.2)
[2018-08-10 12:43] LABS: PLATELET ESTIMATE NORMAL (NORMAL)
[2018-08-10 12:48] LABS: BLOOD UREA NITROGEN 12 mg/dL (6-20); CREATININE 0.7 mg/dL (0.7-1.2); EST GLOMERULAR FILTRATION RATE > 60 mL/min
[2018-08-10 12:49] LABS: TOTAL PROTEIN 7.5 g/dL (6.6-8.7)
[2018-08-10 12:51] LABS: GLUCOSE,RANDOM 267 mg/dL (74-109)
[2018-08-10 12:53] LABS: ALT/SGPT 33 U/L (<41); AST/SGOT 27 U/L (10.0-50.0)
[2018-08-10 12:54] LABS: ALB/GLOB RATIO 0.8 (1.1-1.8); ALBUMIN 3.3 g/dL (4.0-5.0); ALKALINE PHOSPHATASE 112 U/L (40-129); CREATINE PHOSPHOKINASE 74 U/L (39-308); INR 1.1; PARTIAL THROMBOPLASTIN TIME 26.4 SECONDS (24.5-39.1); PROTHROMBIN TIME (PATIENT) 10.7 SECONDS (9.5-12.1)
[2018-08-10 12:57] LABS: CKMB 2.2 ng/mL (<6.73)
[2018-08-10] MEDS ORDERED: DILTIAZEM HCL 125 MG in 0.9 % SODIUM CHLORIDE 100ML 100 ML IV SCH (13:00)
[2018-08-10 13:04] LABS: THYROID STIMULATING HORMONE 2.75 uIU/mL (0.270-4.20)
[2018-08-10] MEDS ORDERED: HEPARIN SODIUM 1000 UNIT/1 ML 10ML VIAL IVP ONE (13:08)
[2018-08-10] MEDS ORDERED: HEPARIN SODIUM/D5W 25,000 UNITS/500 ML BAG IV SCH (13:15)
[2018-08-10] MEDS ORDERED: HYDROMORPHONE HCL 2 MG/ML VIAL IVP ONE (13:32)
--- NOTE | 2018-08-13 21:53 | RADIOLOGY REPORT ---
EXAM: CHEST 1 VIEW HISTORY: RAPID HEART RATE. TECHNIQUE: AP portable views of the chest. COMPARISON: Two-view chest 03/10/2009. FINDINGS: Heart size within normal limits. Lungs are somewhat hyperinflated suggesting underlying COPD. Minor streaky atelectasis or infiltrate left base. IMPRESSION: 1. HYPERINFLATION SUGGESTING COPD. 2. MINOR STREAKY ATELECTASIS OR INFILTRATE LEFT BASE. JOB NUMBER: [id number] [facility]TDD
== END 2018-08-10 14:29 | disposition short-term general hospital (02) ==
LOC: ER 11:47
DX: I48.92 Unspecified atrial flutter (principal); R53.1 Weakness; R06.02 Shortness of breath; R42 Dizziness and giddiness; J44.9 Chronic obstructive pulmonary disease, unspecified; Z87.891 Personal history of nicotine dependence
CPT/HCPCS: 99285 ×2; 96376; 96365; 96366; 96375; 96368; 82550; 85730; 85610; 82553; 80053; 84443; 84484; 85027; 83880; 71045; 93005; 93010; J1170; J2060

== ENCOUNTER 2018-08-13 13:04 | Emergency (ER) | payer MEDICARE ==
[2018-08-13] MEDS ORDERED: DILTIAZEM 25MG/5ML VIAL IV ONE (13:10)
[2018-08-13] MEDS ORDERED: DILTIAZEM HCL 125 MG in 0.9 % SODIUM CHLORIDE 100ML 100 ML IV SCH (13:15)
--- NOTE | 2018-08-13 13:16 | Emergency Department Record ---
History of Present Illness - General Chief Complaint: Arrythmia/Palpitations Stated Complaint: afib Time Seen by Provider: 08/13/18 13:06 Source: Patient Mode of Arrival: Ambulatory Limitations: No limitations - History of Present Illness Initial Comments: 57 yo male presents in atrial fibrillation. He states he was recently sent to [facility] with atrial fibrillation that was new onset. He was discharged but unable to fill the medications. He has felt palpitations and racing heart rate for several days. He was admitted recently to [facility] for a paraspinal abscess. He is still on antibiotics for that condition. He was unable to fill his Multaq due to cost. MD Complaint: Atrial fibrillation, Irregular heart beat, Palpitations -: Days(s) Context: Other Arrythmia History: Atrial fibrillation Associated Symptoms: Anxiety, Diaphoresis, Shortness of breath Treatments Prior to Arrival: Other - Related Data Home Medications Medication Instructions Recorded Confirmed Last Taken Amoxicillin/Potassium Clav [Amox 1 each PO BID 08/13/18 08/13/18 08/13/18 Tr-K Clv 875-125 mg Tab] Cetirizine HCl 10 mg PO DAILY 08/13/18 08/13/18 08/13/18 Diltiazem HCl [Diltiazem ER] 240 mg PO DAILY 08/13/18 08/13/18 08/13/18 Dronedarone HCl [Multaq] 400 mg PO BID 08/13/18 08/13/18 08/13/18 Rivaroxaban [Xarelto] 20 mg PO QHS 08/13/18 08/13/18 08/13/18 Previous Rx's Medication Instructions Recorded Flecainide Acetate 50 mg PO BID #60 tablet 08/13/18 Allergies Allergy/AdvReac Type Severity Reaction Status Date / Time Sulfa (Sulfonamide Allergy Intermediate RASH Verified 08/13/18 13:19 Antibiotics) naproxen AdvReac Mild ITCHING Verified 08/13/18 13:19 Review of Systems Constitutional: Reports: Weakness. Denies: Chills, Fever, Malaise Eyes: Denies: Eye discharge, Eye pain, Photophobia, Vision change ENT: Denies: Congestion, Throat pain Respiratory: Reports: Dyspnea. Denies: Cough Cardiovascular: Reports: Dyspnea on exertion, Palpitations. Denies: Chest pain, Syncope Endocrine: Denies: Fatigue, Polydipsia, Polyuria Gastrointestinal: Denies: Abdominal pain, Diarrhea, Nausea, Vomiting Genitourinary: Denies: Dysuria, Frequency, Hematuria Musculoskeletal: Reports: Myalgia. Denies: Arthralgia, Back pain Skin: Denies: Bruising, Change in color, Rash Neurological: Reports: Numbness, Tingling, Weakness. Denies: Headache Psychiatric: Denies: Anxiety Hematological/Lymphatic: Denies: Blood Clots, Easy bleeding, Easy bruising Past Medical History - SOCIAL HISTORY Smoking Status: Former smoker Drug Use: None - RESPIRATORY Hx Respiratory Disorders: Yes Hx COPD: Yes - CARDIOVASCULAR Hx Cardio Disorders: No - NEURO Hx Neuro Disorders: Yes Hx Headaches: Yes (migraines) - GI Hx GI Disorders: No - Hx Genitourinary Disorders: No - ENDOCRINE Hx Endocrine Disorders: Yes Hx Thyroid Disease: Yes (hypo) - MUSCULOSKELETAL Hx Musculoskeletal Disorders: Yes Hx Arthritis: Yes (RA) - PSYCH Hx Psych Problems: No - HEMATOLOGY/ONCOLOGY Hx Hematology/Oncology Disorders: No Physical Exam - General General Appearance: Alert, Oriented x3, Cooperative, No acute distress Limitations: No limitations - Head Head exam: Atraumatic, Normal inspection - Eye Eye exam: Normal appearance. negative: Conjunctival injection, Scleral icterus - ENT ENT exam: Normal exam, Mucous membranes moist Ear exam: Normal external inspection Nasal Exam: Normal inspection Mouth exam: Normal external inspection - Neck Neck exam: Normal inspection. negative: Lymphadenopathy, Tenderness - Respiratory Respiratory exam: Normal lung sounds bilaterally. negative: Respiratory distress - Cardiovascular Cardiovascular Exam: Irregular rhythm, Tachycardia. negative: Regular rate, Normal rhythm Peripheral Pulses: 2+: Radial (R), Radial (L) - GI/Abdominal GI/Abdominal exam: Soft. negative: Tenderness - Rectal Rectal exam: Deferred - exam: Deferred - Extremities Extremities exam: Normal inspection, Tenderness. negative: Full ROM - Back Back exam: Denies: CVA tenderness (R), CVA tenderness (L) - Neurological Neurological exam: Alert, Motor sensory deficit (Weak RUE, unable to flex or extend at the shoulder), Oriented X3 - Psychiatric Psychiatric exam: Normal affect, Normal mood - Skin Skin exam: Dry, Intact, Normal color, Warm Course - Reevaluation(s) Reevaluation #1: EKG #1: 13:08 Rate: 153 Rhythm: atrial fibrillation [place]: N Intervals: N ST segments: NS inferior changes Prior: 08/10/18 atrial fibrillation 08/13/18 13:15 08/13/18 14:08 The patient labs were reviewed No acute changes on the CBC or CMP The Troponin is normal 08/13/18 14:08 The rate is improved to under 100 Sinus in and out of atrial fibrillation 08/13/18 15:11 The rhythm on the monitor remains NSR Repeat EKG ordered 08/13/18 15:32 EKG #2: 15:12 Rate: 90 Rhythm: sinus [place]: normal Intervals: normal ST segments: No acute change (pr depression no ST elevation inf.) Prior: I RYAN Hammonds of cardiology He recommends DC since he is on anticoagulation and rate control He recommends starting Flecanide 50mg BID Follow up appointment was made for at 10am 08/13/18 17:22 The repeat troponin is normal DC to follow up as scheduled Medical Decision Making - Lab Data Result diagrams: 08/13/18 13:20 08/13/18 13:20 Disposition Disposition: Discharge Clinical Impression: Atrial fibrillation with RVR Disposition: Home, Self-Care Condition: (1) Good Instructions: A-fib (Atrial Fibrillation) (ED) Additional Instructions: Call your doctor for the next available follow up appointment Review this ER visit and the tests performed with your family doctor Return to the ER for a recheck if worse, any new concerns or questions You have an appointment scheduled with Dr Hammonds of cardiology this Start the Flecanide 50mg twice daily Do not take Multaq Take the prescriptions provided as directed Prescriptions: Flecainide Acetate 50 mg PO BID #60 tablet Forms: Patient Portal Access Time of Disposition: 17:22 Quality - Quality Measures Quality Measures: N/A - Blood Pressure Screening Does Patient Have Any of the Following: Active Dx of HTN Blood Pressure Classification: Pre-Hypertensive BP Reading Systolic Measurement: 116 Diastolic Measurement: 85 Screening for High Blood Pressure: Patient Exclusion, Hx of HTN [G9744]
[2018-08-13 13:34] LABS: HEMATOCRIT 40.2 % (42.0-52.0); HEMOGLOBIN 13.1 gm/dl (14.0-18.0); MEAN CELL VOLUME 90.3 fl (81-97); MEAN CORPUSCULAR HEMOGLOBIN 29.4 pg (27-33); MEAN CORPUSCULAR HGB CONC 32.6 g/dl (32-36); MEAN PLATELET VOLUME 8.7 fl (7.4-10.4); PLATELET COUNT 477 K/uL (130-400); RED BLOOD COUNT 4.45 M/uL (4.40-5.70); RED CELL DISTRIBUTION WIDTH 13.8 % (11.5-14.5); WHITE BLOOD COUNT W/O DIFF 12.7 K/uL (4.2-12.2)
[2018-08-13 13:39] LABS: BLOOD UREA NITROGEN 13 mg/dL (6-20); CREATININE 0.8 mg/dL (0.7-1.2); EST GLOMERULAR FILTRATION RATE > 60 mL/min
[2018-08-13 13:40] LABS: TOTAL PROTEIN 8.1 g/dL (6.6-8.7)
[2018-08-13 13:42] LABS: GLUCOSE,RANDOM 129 mg/dL (74-109)
[2018-08-13 13:43] LABS: INR 1.3; PROTHROMBIN TIME (PATIENT) 12.8 SECONDS (9.5-12.1)
[2018-08-13 13:45] LABS: ALB/GLOB RATIO 0.6 (1.1-1.8); ALBUMIN 3.1 g/dL (4.0-5.0); ALKALINE PHOSPHATASE 111 U/L (40-129); ALT/SGPT 27 U/L (<41); AST/SGOT 26 U/L (10.0-50.0)
[2018-08-13 13:58] LABS: ABSOLUTE NEUTROPHIL COUNT 10.81
[2018-08-13] MEDS ORDERED: DRONEDARONE HCL 400 MG TABLET PO SCH (15:30)
[2018-08-13] MEDS ORDERED: FLECAINIDE ACETATE 50 MG TABLET PO SCH (15:45)
== END 2018-08-13 17:40 | disposition home or self-care (01) ==
LOC: ER 13:04
DX: I48.0 Paroxysmal atrial fibrillation (principal); R61 Generalized hyperhidrosis; R06.02 Shortness of breath; J44.9 Chronic obstructive pulmonary disease, unspecified; Z87.891 Personal history of nicotine dependence
CPT/HCPCS: 80053; 83735; 84484; 85027; 85610; 85730; 93005; 93010; 96365; 96375; 99284

== ENCOUNTER 2018-08-21 11:42 | Emergency (ER) | payer MEDICARE ==
[2018-08-21] MEDS ORDERED: ASPIRIN 81 MG CHEWABLE TABLET PO ONE (13:20)
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
[2018-08-21] MEDS ORDERED: DILTIAZEM 25MG/5ML VIAL IV ONE ×2 (13:24→14:58)
[2018-08-21 13:50] LABS: ABSOLUTE NEUTROPHIL COUNT 6.58; BASO % 1.1 % (0-6); EOS % 1.6 % (0-6); GRAN % 76.9 % (47-80); HEMATOCRIT 38.7 % (42.0-52.0); HEMOGLOBIN 12.2 gm/dl (14.0-18.0); LYMPH % 12.3 % (16-45); MEAN CELL VOLUME 91.7 fl (81-97); MEAN CORPUSCULAR HEMOGLOBIN 28.9 pg (27-33); MEAN CORPUSCULAR HGB CONC 31.5 g/dl (32-36); MEAN PLATELET VOLUME 8.7 fl (7.4-10.4); MONO % 8.1 % (0-9); PLATELET COUNT 531 K/uL (130-400); RED BLOOD COUNT 4.22 M/uL (4.40-5.70); RED CELL DISTRIBUTION WIDTH 13.4 % (11.5-14.5); WHITE BLOOD COUNT W/O DIFF 8.6 K/uL (4.2-12.2)
[2018-08-21 14:01] LABS: BLOOD UREA NITROGEN 12 mg/dL (6-20); CREATININE 0.7 mg/dL (0.7-1.2); EST GLOMERULAR FILTRATION RATE > 60 mL/min
[2018-08-21 14:04] LABS: GLUCOSE,RANDOM 127 mg/dL (74-109)
[2018-08-21 14:05] LABS: INR 1.2; PARTIAL THROMBOPLASTIN TIME 31.4 SECONDS (24.5-39.1); PROTHROMBIN TIME (PATIENT) 11.9 SECONDS (9.5-12.1)
[2018-08-21] MEDS ORDERED: 0.9 % SODIUM CHLORIDE 1000ML 1,000 ML IV ONE (15:41)
[2018-08-21] MEDS ORDERED: DILTIAZEM HCL 120 MG ER CAPSULE PO ONE (17:23)
[2018-08-21] MEDS ORDERED: DILTIAZEM HCL 120 MG ER CAPSULE PO SCH (17:30)
--- NOTE | 2018-08-21 17:43 | Emergency Department Record ---
History of Present Illness - General Chief complaint: Pain Stated complaint: COMPLICATIONS FROM ABSCESS Time Seen by Provider: 08/21/18 12:25 Source: Patient Mode of Arrival: Wheelchair - History of Present Illness Onset/Timin -: Week(s) Location: Left, Right, Arm, Foot, Hand, Knee History of Same: Yes Severity scale (1-10): 7 Consistency: Constant Improves with: Nothing Worsens with: Nothing Associated Symptoms: Denies other symptoms - Related Data Previous Rx's Medication Instructions Recorded Flecainide Acetate 50 mg PO BID #60 tablet 08/13/18 Amoxicillin/Potassium Clav 1 tab PO BID #20 tab 08/21/18 [Augmentin 875-125 Tablet] Diltiazem HCl [Diltiazem ER] 120 mg PO DAILY #30 cap.er.deg 08/21/18 Allergies Allergy/AdvReac Type Severity Reaction Status Date / Time Sulfa (Sulfonamide Allergy Intermediate RASH Verified 08/13/18 13:19 Antibiotics) naproxen AdvReac Mild ITCHING Verified 08/13/18 13:19 Travel Screening - Travel/Exposure Within Last 30 Days Have you traveled within the last 30 days?: No Review of Systems Constitutional: Reports: As per HPI. Denies: Chills, Fever, Malaise, Night sweats, Weakness, Weight change Eyes: Reports: As per HPI. Denies: Eye discharge, Eye pain, Photophobia, Vision change ENT: Reports: As per HPI. Denies: Congestion, Dental pain, Ear pain, Epistaxis, Hearing loss, Throat pain Respiratory: Reports: As per HPI. Denies: Cough, Dyspnea, Hemoptysis, Stridor, Wheezes Cardiovascular: Reports: As per HPI, Chest pain, Palpitations. Denies: Arrhythmia, Dyspnea on exertion, Edema, Murmurs, Orthopnea, Paroxysmal nocturnal dyspnea, Rheumatic Fever, Syncope Endocrine: Reports: As per HPI. Denies: Fatigue, Heat or cold intolerance, Polydipsia, Polyuria Gastrointestinal: Reports: As per HPI. Denies: Abdominal pain, Constipation, Diarrhea, Hematemesis, Hematochezia, Melena, Nausea, Vomiting Genitourinary: Reports: As per HPI. Denies: Dysuria, Frequency, Hematuria, Incontinence, Retention, Testicular pain, Testicular mass, Urgency Musculoskeletal: Reports: As per HPI. Denies: Arthralgia, Back pain, Gout, Joint swelling, Myalgia, Neck pain Skin: Reports: As per HPI. Denies: Bruising, Change in color, Change in hair/nails, Lesions, Pruritus, Rash Neurological: Reports: As per HPI. Denies: Abnormal gait, Confusion, Headache, Numbness, Paresthesias, Seizure, Tingling, Tremors, Vertigo, Weakness Psychiatric: Reports: As per HPI. Denies: Anxiety, Auditory hallucinations, Depression, Homicidal thoughts, Suicidal thoughts, Visual hallucinations Hematological/Lymphatic: Reports: As per HPI. Denies: Anemia, Blood Clots, Easy bleeding, Easy bruising, Swollen glands Past Medical History - SOCIAL HISTORY Smoking Status: Former smoker - RESPIRATORY Hx Respiratory Disorders: Yes Hx COPD: Yes - CARDIOVASCULAR Hx Cardio Disorders: Yes Hx Hypertension: Yes Hx Irregular Heartbeat: Yes (aflutter/afib) - NEURO Hx Neuro Disorders: Yes Hx Headaches: Yes (migraines) - GI Hx GI Disorders: No - Hx Genitourinary Disorders: No - ENDOCRINE Hx Endocrine Disorders: Yes Hx Thyroid Disease: Yes (hypo) - MUSCULOSKELETAL Hx Musculoskeletal Disorders: Yes Hx Arthritis: Yes (RA) - PSYCH Hx Psych Problems: No - HEMATOLOGY/ONCOLOGY Hx Hematology/Oncology Disorders: No Family Medical History Any Significant Family History?: No Course Vital Signs 08/21/18 08/21/18 08/21/18 12:44 13:07 15:11 Temperature 99.6 F 98.9 F Pulse Rate 69 Pulse Rate [ [employer] ] Pulse Rate [ 128 H Pulse Ox Probe] Respiratory 20 28 H Rate Blood Pressure 126/65 Blood Pressure 91/65 [Left Arm] Pulse Ox 97 98 08/21/18 08/21/18 08/21/18 15:41 16:29 16:46 Temperature 98.8 F Pulse Rate Pulse Rate [ 122 H [employer] ] Pulse Rate [ Pulse Ox Probe] Respiratory Rate Blood Pressure Blood Pressure 101/70 100/79 [Left Arm] Pulse Ox Medical Decision Making - Lab Data Result diagrams: 08/21/18 13:35 08/21/18 13:35 Lab Results 08/21/18 08/21/18 08/21/18 Range/Units 13:35 13:35 13:35 WBC 8.6 (4.2-12.2) K/uL RBC 4.22 L (4.40-5.70) M/uL Hgb 12.2 L (14.0-18.0) gm/dl Hct 38.7 L (42.0-52.0) % MCV 91.7 (81-97) fl MCH 28.9 (27-33) pg MCHC 31.5 L (32-36) g/dl RDW 13.4 (11.5-14.5) % Plt Count 531 H (130-400) K/uL MPV 8.7 (7.4-10.4) fl Gran % 76.9 (47-80) % Lymphocytes % 12.3 L (16-45) % Monocytes % 8.1 (0-9) % Eosinophils % 1.6 (0-6) % Basophils % 1.1 (0-6) % Absolute Neutrophils 6.58 PT 11.9 (9.5-12.1) SECONDS INR 1.2 APTT 31.4 (24.5-39.1) SECONDS Sodium 132 L (136-145) mmol/L Potassium 4.7 H (3.4-4.5) mmol/L Chloride 95 L (98-107) mmol/L Carbon Dioxide 27.0 (22-29) mmol/L Anion Gap 10.0 (7-16) BUN 12 (6-20) mg/dL Creatinine 0.7 (0.7-1.2) mg/dL Estimated GFR > 60 mL/min Random Glucose 127 H (74-109) mg/dL Calcium 9.2 (8.6-10.0) mg/dL Troponin T < 0.010 (0-0.010) ng/mL 08/21/18 Range/Units 16:30 WBC (4.2-12.2) K/uL RBC (4.40-5.70) M/uL Hgb (14.0-18.0) gm/dl Hct (42.0-52.0) % MCV (81-97) fl MCH (27-33) pg MCHC (32-36) g/dl RDW (11.5-14.5) % Plt Count (130-400) K/uL MPV (7.4-10.4) fl Gran % (47-80) % Lymphocytes % (16-45) % Monocytes % (0-9) % Eosinophils % (0-6) % Basophils % (0-6) % Absolute Neutrophils PT (9.5-12.1) SECONDS INR APTT (24.5-39.1) SECONDS Sodium (136-145) mmol/L Potassium (3.4-4.5) mmol/L Chloride (98-107) mmol/L Carbon Dioxide (22-29) mmol/L Anion Gap (7-16) BUN (6-20) mg/dL Creatinine (0.7-1.2) mg/dL Estimated GFR mL/min Random Glucose (74-109) mg/dL Calcium (8.6-10.0) mg/dL Troponin T < 0.010 (0-0.010) ng/mL Disposition Clinical Impression: Atrial fibrillation and flutter, Tachycardia Disposition: Home, Self-Care Condition: (2) Stable Instructions: A-fib (Atrial Fibrillation) (ED) Additional Instructions: follow up with Dr. Vicente Hammonds in one week return if worse increase flecanide to 100 mg BID decrease diltiazemER to 12o mg per day Prescriptions: Amoxicillin/Potassium Clav [Augmentin 875-125 Tablet] 1 tab PO BID #20 tab Diltiazem HCl [Diltiazem ER] 120 mg PO DAILY #30 cap.er.deg Forms: Patient Portal Access Quality - Quality Measures Quality Measures: N/A - Blood Pressure Screening Does Patient Have Any of the Following: No Blood Pressure Classification: Pre-Hypertensive BP Reading Systolic Measurement: 126 Diastolic Measurement: 65 Screening for High Blood Pressure: < Pre-Hypertensive BP, F/U Documented > [G8950] Pre-Hypertensive Follow-up Interventions: Referral to alternative/primary care provider.
== END 2018-08-21 17:52 | disposition home or self-care (01) ==
LOC: ER 11:42
DX: I48.91 Unspecified atrial fibrillation (principal); I48.92 Unspecified atrial flutter; R00.0 Tachycardia, unspecified; R42 Dizziness and giddiness; I10 Essential (primary) hypertension; J44.9 Chronic obstructive pulmonary disease, unspecified; Z87.891 Personal history of nicotine dependence
CPT/HCPCS: 80048; 84484; 85025; 85610; 85730; 93005; 93010; 96374; 99284; J7030

== ENCOUNTER 2018-09-09 08:50 | Emergency (ER) | payer MEDICARE ==
[2018-09-09] MEDS ORDERED: NITROGLYCERIN 0.4MG SL TABLET #25 BTL SL ONE (09:19)
[2018-09-09] MEDS ORDERED: ASPIRIN 81 MG CHEWABLE TABLET PO ONE (09:19)
[2018-09-09 09:45] LABS: ABSOLUTE NEUTROPHIL COUNT 4.33; BASO % 1.1 % (0-6); EOS % 3.8 % (0-6); HEMATOCRIT 35.1 % (42.0-52.0); HEMOGLOBIN 10.9 gm/dl (14.0-18.0); LYMPH % 15.9 % (16-45); MEAN CELL VOLUME 88.4 fl (81-97); MEAN CORPUSCULAR HGB CONC 31.1 g/dl (32-36); MEAN PLATELET VOLUME 8.1 fl (7.4-10.4); MONO % 11.2 % (0-9); PLATELET COUNT 472 K/uL (130-400); RED BLOOD COUNT 3.97 M/uL (4.40-5.70); RED CELL DISTRIBUTION WIDTH 13.9 % (11.5-14.5); WHITE BLOOD COUNT W/O DIFF 6.4 K/uL (4.2-12.2)
[2018-09-09 09:46] LABS: MEAN CORPUSCULAR HEMOGLOBIN 27.4 pg (27-33)
[2018-09-09 09:54] LABS: BLOOD UREA NITROGEN 6 mg/dL (6-20); CREATININE 0.5 mg/dL (0.7-1.2); EST GLOMERULAR FILTRATION RATE > 60 mL/min
[2018-09-09 09:57] LABS: GLUCOSE,RANDOM 122 mg/dL (74-109)
[2018-09-09 10:00] LABS: CREATINE PHOSPHOKINASE 47 U/L (39-308)
[2018-09-09 10:03] LABS: CKMB 1.2 ng/mL (<6.73)
[2018-09-09 10:10] LABS: THYROID STIMULATING HORMONE 3.08 uIU/mL (0.270-4.20)
[2018-09-09] MEDS ORDERED: HEPARIN SODIUM FLUSH 100 UNITS/ML SYR 5ML IVP ONE (10:26)
--- NOTE | 2018-09-09 10:50 | Emergency Department Record ---
History of Present Illness - General Chief Complaint: Shortness of breath Stated Complaint: REFUGIO/PVC'S I THINK Time Seen by Provider: 09/09/18 09:00 Source: Patient Mode of Arrival: Ambulatory Limitations: No limitations - History of Present Illness Initial Comments: pt awoke w palpitations during the night. he has had this before. he denies any chest pain. he is currently being treated for ostemylitis of C1-C2. he has a pick line. Onset/Timin -: Hour(s) Improves With: Nothing Worsens With: Nothing Associated Symptoms: Palpitations Treatments Prior to Arrival: None - Related Data Allergies Allergy/AdvReac Type Severity Reaction Status Date / Time Sulfa (Sulfonamide Allergy Intermediate RASH Verified 09/09/18 08:54 Antibiotics) naproxen Allergy Mild ITCHING Verified 09/09/18 08:54 Travel Screening - Travel/Exposure Within Last 30 Days Have you traveled within the last 30 days?: No Review of Systems Reviewed: No additional complaints except as noted below Constitutional: Reports: As per HPI. Denies: Chills, Fever, Malaise, Night sweats, Weakness, Weight change Eyes: Reports: As per HPI. Denies: Eye discharge, Eye pain, Photophobia, Vision change ENT: Reports: As per HPI. Denies: Congestion, Dental pain, Ear pain, Epistaxis, Hearing loss, Throat pain Respiratory: Reports: As per HPI. Denies: Cough, Dyspnea, Hemoptysis, Stridor, Wheezes Cardiovascular: Reports: As per HPI, Palpitations. Denies: Arrhythmia, Chest pain, Dyspnea on exertion, Edema, Murmurs, Orthopnea, Paroxysmal nocturnal dyspnea, Rheumatic Fever, Syncope Endocrine: Reports: As per HPI. Denies: Fatigue, Heat or cold intolerance, Polydipsia, Polyuria Gastrointestinal: Reports: As per HPI. Denies: Abdominal pain, Constipation, Diarrhea, Hematemesis, Hematochezia, Melena, Nausea, Vomiting Genitourinary: Reports: As per HPI. Denies: Dysuria, Frequency, Hematuria, Incontinence, Retention, Testicular pain, Testicular mass, Urgency Musculoskeletal: Reports: As per HPI. Denies: Arthralgia, Back pain, Gout, Joint swelling, Myalgia, Neck pain Skin: Reports: As per HPI. Denies: Bruising, Change in color, Change in hair/nails, Lesions, Pruritus, Rash Neurological: Reports: As per HPI. Denies: Abnormal gait, Confusion, Headache, Numbness, Paresthesias, Seizure, Tingling, Tremors, Vertigo, Weakness Psychiatric: Reports: As per HPI. Denies: Anxiety, Auditory hallucinations, Depression, Homicidal thoughts, Suicidal thoughts, Visual hallucinations Hematological/Lymphatic: Reports: As per HPI. Denies: Anemia, Blood Clots, Easy bleeding, Easy bruising, Swollen glands Past Medical History - SOCIAL HISTORY Smoking Status: Former smoker Alcohol Use: None Drug Use: None - RESPIRATORY Hx Respiratory Disorders: Yes Hx COPD: Yes - CARDIOVASCULAR Hx Cardio Disorders: Yes Hx Irregular Heartbeat: Yes (aflutter/afib) - NEURO Hx Neuro Disorders: Yes Hx Headaches: Yes (migraines) - GI Hx GI Disorders: No - Hx Genitourinary Disorders: No - ENDOCRINE Hx Endocrine Disorders: Yes Hx Thyroid Disease: Yes (hypo) - MUSCULOSKELETAL Hx Musculoskeletal Disorders: Yes Hx Arthritis: Yes (RA) - PSYCH Hx Psych Problems: No - HEMATOLOGY/ONCOLOGY Hx Hematology/Oncology Disorders: No Family Medical History Any Significant Family History?: No Physical Exam - General General Appearance: Alert, Oriented x3, Cooperative, Mild distress - Head Head exam: Normal inspection - Eye Eye exam: Normal appearance, PERRL, EOMI Pupils: Normal accommodation - ENT ENT exam: Normal exam, Mucous membranes moist, Normal external ear exam, Normal orophraynx Ear exam: Normal external inspection. negative: External canal tenderness Nasal Exam: Normal inspection. negative: Discharge, Sinus tenderness Mouth exam: Normal external inspection, Tongue normal Teeth exam: Normal inspection. negative: Dental caries Throat exam: Normal inspection. negative: Tonsillar erythema, Tonsillar exudate - Neck Neck exam: Normal inspection, Full ROM. negative: Tenderness - Respiratory Respiratory exam: Normal lung sounds bilaterally. negative: Respiratory distress - Cardiovascular Cardiovascular Exam: Regular rate, Normal rhythm, Normal heart sounds - GI/Abdominal GI/Abdominal exam: Soft, Normal bowel sounds. negative: Tenderness - Rectal Rectal exam: Deferred - exam: Deferred - Extremities Extremities exam: Normal inspection, Full ROM, Normal capillary refill. negative: Tenderness - Back Back exam: Reports: Normal inspection, Full ROM. Denies: Muscle spasm, Rash noted, Tenderness - Neurological Neurological exam: Alert, CN II-XII intact, Normal gait, Oriented X3 - Psychiatric Psychiatric exam: Normal affect, Normal mood - Skin Skin exam: Dry, Intact, Normal color, Warm Course Vital Signs 09/09/18 09/09/18 08:55 10:02 Pulse Rate 97 H Pulse Rate [ 95 H Assisted Living Administrator ] Respiratory 20 18 Rate Blood Pressure 111/76 Blood Pressure 124/94 [Right Arm] Pulse Ox 96 97 - Reevaluation(s) Reevaluation #1: 09/09/18 11:41 pt feels better. no arrythmias Medical Decision Making - Lab Data Result diagrams: 09/09/18 09:40 09/09/18 09:40 Lab Results 09/09/18 09/09/18 Range/Units 09:40 09:40 WBC 6.4 (4.2-12.2) K/uL RBC 3.97 L (4.40-5.70) M/uL Hgb 10.9 L (14.0-18.0) gm/dl Hct 35.1 L (42.0-52.0) % MCV 88.4 (81-97) fl MCH 27.4 (27-33) pg MCHC 31.1 L (32-36) g/dl RDW 13.9 (11.5-14.5) % Plt Count 472 H (130-400) K/uL MPV 8.1 (7.4-10.4) fl Gran % 68.0 (47-80) % Lymphocytes % 15.9 L (16-45) % Monocytes % 11.2 H (0-9) % Eosinophils % 3.8 (0-6) % Basophils % 1.1 (0-6) % Absolute Neutrophils 4.33 Sodium 136 (136-145) mmol/L Potassium 4.0 (3.4-4.5) mmol/L Chloride 99 (98-107) mmol/L Carbon Dioxide 25.0 (22-29) mmol/L Anion Gap 12.0 (7-16) BUN 6 (6-20) mg/dL Creatinine 0.5 L (0.7-1.2) mg/dL Estimated GFR > 60 mL/min Random Glucose 122 H (74-109) mg/dL Calcium 9.3 (8.6-10.0) mg/dL Creatine Kinase 47 (39-308) U/L CK-MB (CK-2) 1.2 (<6.73) ng/mL Troponin T < 0.010 (0-0.010) ng/mL TSH 3.08 (0.270-4.20) uIU/mL Disposition Forms: Patient Portal Access Quality - Quality Measures Quality Measures: N/A - Blood Pressure Screening Does Patient Have Any of the Following: No Blood Pressure Classification: Normal BP Reading Systolic Measurement: 111 Diastolic Measurement: 76 Screening for High Blood Pressure: < Normal BP, F/U Not Required > [G3899]
--- NOTE | 2018-09-09 11:55 | Emergency Department Record ---
History of Present Illness - General Chief Complaint: Shortness of breath Stated Complaint: REFUGIO/PVC'S I THINK Time Seen by Provider: 09/09/18 09:00 Source: Patient Mode of Arrival: Ambulatory Limitations: No limitations - History of Present Illness Onset/Timin -: Hour(s) Improves With: Nothing Worsens With: Nothing Associated Symptoms: Palpitations Treatments Prior to Arrival: None - Related Data Allergies Allergy/AdvReac Type Severity Reaction Status Date / Time Sulfa (Sulfonamide Allergy Intermediate RASH Verified 09/09/18 08:54 Antibiotics) naproxen Allergy Mild ITCHING Verified 09/09/18 08:54 Travel Screening - Travel/Exposure Within Last 30 Days Have you traveled within the last 30 days?: No Review of Systems Constitutional: Reports: As per HPI. Denies: Chills, Fever, Malaise, Night sweats, Weakness, Weight change Eyes: Reports: As per HPI. Denies: Eye discharge, Eye pain, Photophobia, Vision change ENT: Reports: As per HPI. Denies: Congestion, Dental pain, Ear pain, Epistaxis, Hearing loss, Throat pain Respiratory: Reports: As per HPI. Denies: Cough, Dyspnea, Hemoptysis, Stridor, Wheezes Cardiovascular: Reports: As per HPI, Palpitations. Denies: Arrhythmia, Chest pain, Dyspnea on exertion, Edema, Murmurs, Orthopnea, Paroxysmal nocturnal dyspnea, Rheumatic Fever, Syncope Endocrine: Reports: As per HPI. Denies: Fatigue, Heat or cold intolerance, Polydipsia, Polyuria Gastrointestinal: Reports: As per HPI. Denies: Abdominal pain, Constipation, Diarrhea, Hematemesis, Hematochezia, Melena, Nausea, Vomiting Genitourinary: Reports: As per HPI. Denies: Dysuria, Frequency, Hematuria, Incontinence, Retention, Testicular pain, Testicular mass, Urgency Musculoskeletal: Reports: As per HPI. Denies: Arthralgia, Back pain, Gout, Joint swelling, Myalgia, Neck pain Skin: Reports: As per HPI. Denies: Bruising, Change in color, Change in hair/nails, Lesions, Pruritus, Rash Neurological: Reports: As per HPI. Denies: Abnormal gait, Confusion, Headache, Numbness, Paresthesias, Seizure, Tingling, Tremors, Vertigo, Weakness Psychiatric: Reports: As per HPI. Denies: Anxiety, Auditory hallucinations, Depression, Homicidal thoughts, Suicidal thoughts, Visual hallucinations Hematological/Lymphatic: Reports: As per HPI. Denies: Anemia, Blood Clots, Easy bleeding, Easy bruising, Swollen glands Past Medical History - SOCIAL HISTORY Smoking Status: Former smoker Alcohol Use: None Drug Use: None - RESPIRATORY Hx Respiratory Disorders: Yes Hx COPD: Yes - CARDIOVASCULAR Hx Cardio Disorders: Yes Hx Irregular Heartbeat: Yes (aflutter/afib) - NEURO Hx Neuro Disorders: Yes Hx Headaches: Yes (migraines) - GI Hx GI Disorders: No - Hx Genitourinary Disorders: No - ENDOCRINE Hx Endocrine Disorders: Yes Hx Thyroid Disease: Yes (hypo) - MUSCULOSKELETAL Hx Musculoskeletal Disorders: Yes Hx Arthritis: Yes (RA) - PSYCH Hx Psych Problems: No - HEMATOLOGY/ONCOLOGY Hx Hematology/Oncology Disorders: No Family Medical History Any Significant Family History?: No Physical Exam - General Limitations: No limitations - Extremities Extremities exam: Other (pic line in place) Course Vital Signs 09/09/18 09/09/18 09/09/18 08:55 10:02 11:50 Pulse Rate 97 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 ] Respiratory 20 18 20 Rate Blood Pressure 111/76 Blood Pressure 124/94 115/87 [Right Arm] Pulse Ox 96 97 97 Medical Decision Making - Lab Data Result diagrams: 09/09/18 09:40 09/09/18 09:40 Lab Results 09/09/18 09/09/18 Range/Units 09:40 09:40 WBC 6.4 (4.2-12.2) K/uL RBC 3.97 L (4.40-5.70) M/uL Hgb 10.9 L (14.0-18.0) gm/dl Hct 35.1 L (42.0-52.0) % MCV 88.4 (81-97) fl MCH 27.4 (27-33) pg MCHC 31.1 L (32-36) g/dl RDW 13.9 (11.5-14.5) % Plt Count 472 H (130-400) K/uL MPV 8.1 (7.4-10.4) fl Gran % 68.0 (47-80) % Lymphocytes % 15.9 L (16-45) % Monocytes % 11.2 H (0-9) % Eosinophils % 3.8 (0-6) % Basophils % 1.1 (0-6) % Absolute Neutrophils 4.33 Sodium 136 (136-145) mmol/L Potassium 4.0 (3.4-4.5) mmol/L Chloride 99 (98-107) mmol/L Carbon Dioxide 25.0 (22-29) mmol/L Anion Gap 12.0 (7-16) BUN 6 (6-20) mg/dL Creatinine 0.5 L (0.7-1.2) mg/dL Estimated GFR > 60 mL/min Random Glucose 122 H (74-109) mg/dL Calcium 9.3 (8.6-10.0) mg/dL Creatine Kinase 47 (39-308) U/L CK-MB (CK-2) 1.2 (<6.73) ng/mL Troponin T < 0.010 (0-0.010) ng/mL TSH 3.08 (0.270-4.20) uIU/mL Disposition Disposition: Discharge Clinical Impression: Palpitations Disposition: Home, Self-Care Condition: (1) Good Instructions: Heart Palpitations (ED) Additional Instructions: follow up with family doctor. return sooner if worse Forms: Patient Portal Access Quality - Quality Measures Quality Measures: N/A - Blood Pressure Screening Does Patient Have Any of the Following: No Blood Pressure Classification: Normal BP Reading Systolic Measurement: 111 Diastolic Measurement: 76 Screening for High Blood Pressure: < Normal BP, F/U Not Required > [G8765]
--- NOTE | 2018-09-10 15:01 | RADIOLOGY REPORT ---
EXAMINATION: Chest 2 views. CLINICAL HISTORY: Palpitations. Acute shortness of breath. TECHNIQUE: Upright PA and lateral views of the chest. COMPARISON: Chest 1 view dated 08/10/2018. FINDINGS: There has been interval placement of a left upper extremity PICC, the tip of which is in the upper SVC. The heart is not enlarged. No pulmonary venous hypertension is seen. Linear opacities are noted within the left lung base consistent with scarring or atelectasis. No new lung consolidation, costophrenic angle blunting, or pneumothorax. The lungs are borderline to mildly hyperinflated. There are degenerative changes scattered within the visualized spine. IMPRESSION: 1. Left upper extremity PICC in place with its tip in the upper SVC. 2. Linear scarring versus atelectasis in the left lung base. 3. Borderline to mild hyperinflation of the lungs. MTDD
== END 2018-09-09 12:08 | disposition home or self-care (01) ==
LOC: ER 08:50
DX: R00.2 Palpitations (principal); I48.91 Unspecified atrial fibrillation; R06.02 Shortness of breath; J44.9 Chronic obstructive pulmonary disease, unspecified; Z87.891 Personal history of nicotine dependence; M46.52 Other infective spondylopathies, cervical region
CPT/HCPCS: 71046; 80048; 80053; 80202; 82550; 82553; 84443; 84484; 85025; 85651; 86140; 93005; 93010; 96374; 99284

== ENCOUNTER 2018-10-11 08:08 | Emergency (ER) | payer MEDICARE ==
--- NOTE | 2018-10-11 08:30 | Emergency Department Record ---
History of Present Illness - General Chief Complaint: Numbness Stated Complaint: NUMBNESS IN FINGER/ARM LEFT Time Seen by Provider: 10/11/18 08:20 Mode of Arrival: Ambulatory - History of Present Illness Initial Comments: patient wake up with numbness in the left hand and arm at 7 am and now only numb in the left thumb 1.5 hours later and he has a red line on the left lower leg which he circled with a red pen and that is also going away and he noticed that at 7 am too. Patient currently getting IV antibiotics and has a port which he does at home and he brought his antibiotics in with him and he recieves them at 9am today(BID) also using zyvox orally today . History of cervical abscess and osteo and atrial fib. Infectious disease Dr Dr. Clay Onset/Timin -: Hour(s) Improves With: None Worsens With: None Associated Symptoms: Denies other symptoms - [place] Coma Scale Eye Response: (4) Open spontaneously Motor Response: (6) Obeys commands Verbal Response: (5) Oriented [place] Total: 15 - Related Data Home Medications: Home Medications Medication Instructions Recorded Confirmed Last Taken Linezolid 600 mg PO BID 10/11/18 10/11/18 Unknown Allergies/Adverse Reactions: Allergies Allergy/AdvReac Type Severity Reaction Status Date / Time Sulfa (Sulfonamide Allergy Intermediate RASH Verified 10/11/18 08:15 Antibiotics) naproxen Allergy Mild ITCHING Verified 10/11/18 08:15 Travel Screening - Travel/Exposure Within Last 30 Days Have you traveled within the last 30 days?: No Review of Systems Reviewed: No additional complaints except as noted below Constitutional: Reports: As per HPI. Denies: Chills, Fever, Malaise, Night sweats, Weakness, Weight change Eyes: Reports: As per HPI. Denies: Eye discharge, Eye pain, Photophobia, Vision change ENT: Reports: As per HPI. Denies: Congestion, Dental pain, Ear pain, Epistaxis, Hearing loss, Throat pain Respiratory: Reports: As per HPI. Denies: Cough, Dyspnea, Hemoptysis, Stridor, Wheezes Cardiovascular: Reports: As per HPI. Denies: Arrhythmia, Chest pain, Dyspnea on exertion, Edema, Murmurs, Orthopnea, Palpitations, Paroxysmal nocturnal dyspnea, Rheumatic Fever, Syncope Endocrine: Reports: As per HPI. Denies: Fatigue, Heat or cold intolerance, Polydipsia, Polyuria Gastrointestinal: Reports: As per HPI. Denies: Abdominal pain, Constipation, Diarrhea, Hematemesis, Hematochezia, Melena, Nausea, Vomiting Genitourinary: Reports: As per HPI. Denies: Dysuria, Frequency, Hematuria, In continence, Retention, Testicular pain, Testicular mass, Urgency Musculoskeletal: Reports: As per HPI. Denies: Arthralgia, Back pain, Gout, Joint swelling, Myalgia, Neck pain Skin: Reports: As per HPI. Denies: Bruising, Change in color, Change in h air/nails, Lesions, Pruritus, Rash Neurological: Reports: As per HPI. Denies: Abnormal gait, Confusion, Headache, Numbness, Paresthesias, Seizure, Tingling, Tremors, Vertigo, Weakness Psychiatric: Reports: As per HPI. Denies: Anxiety, Auditory hallucinations, Depression, Homicidal thoughts, Suicidal thoughts, Visual hallucinations Hematological/Lymphatic: Reports: As per HPI. Denies: Anemia, Blood Clots, Easy bleeding, Easy bruising, Swollen glands Past Medical History - SOCIAL HISTORY Smoking Status: Former smoker Alcohol Use: None Drug Use: None - RESPIRATORY Hx Respiratory Disorders: Yes Hx COPD: Yes - CARDIOVASCULAR Hx Cardio Disorders: Yes Hx Irregular Heartbeat: Yes (aflutter/afib) - NEURO Hx Neuro Disorders: Yes Hx Headaches: Yes (migraines) - GI Hx GI Disorders: No - Hx Genitourinary Disorders: No - ENDOCRINE Hx Endocrine Disorders: Yes Hx Thyroid Disease: Yes (hypo) - MUSCULOSKELETAL Hx Musculoskeletal Disorders: Yes Hx Arthritis: Yes (RA) - PSYCH Hx Psych Problems: No - HEMATOLOGY/ONCOLOGY Hx Hematology/Oncology Disorders: No Family Medical History Any Significant Family History?: Yes Physical Exam - General General Appearance: Alert, Oriented x3, Cooperative, No acute distress - Head Head exam: Normal inspection - Eye Eye exam: Normal appearance, PERRL Pupils: Normal accommodation - ENT ENT exam: Normal exam, Mucous membranes moist, Normal external ear exam, Normal orophraynx, TM's normal bilaterally Ear exam: Normal external inspection. negative: External canal tenderness Nasal Exam: Normal inspection. negative: Discharge, Sinus tenderness Mouth exam: Normal external inspection, Tongue normal Teeth exam: Normal inspection. negative: Dental caries Throat exam: Normal inspection. negative: Tonsillar erythema, Tonsillar exudate - Neck Neck exam: Normal inspection, Full ROM. negative: Tenderness - Respiratory Respiratory exam: Normal lung sounds bilaterally. negative: Respiratory distress - Cardiovascular Cardiovascular Exam: Regular rate, Normal rhythm, Normal heart sounds - GI/Abdominal GI/Abdominal exam: Soft, Normal bowel sounds. negative: Tenderness - Rectal Rectal exam: Deferred - exam: Deferred - Extremities Extremities exam: Normal inspection, Full ROM, Normal capillary refill. negative: Tenderness - Back Back exam: Reports: Normal inspection, Full ROM. Denies: Muscle spasm, Rash noted, Tenderness - Neurological Neurological exam: Alert, Normal gait, Oriented X3, Reflexes normal - Psychiatric Psychiatric exam: Normal affect, Normal mood - Skin Skin exam: Other (faint red gabriela left lower leg and going away) Course Vital Signs 10/11/18 08:12 Temperature 97.5 F L Pulse Rate 100 H Respiratory 20 Rate Blood Pressure 127/84 Pulse Ox 96 - Reevaluation(s) Reevaluation #1: peripheral neuropathy of the left arm most likely from position pressure on his arm. numbness resolved. 10/11/18 09:35 Reevaluation #2: redness on the left lower leg could also be from pressure or the early cellulitis but that is going away rapidly too and unlikely cellulitis and he is on IV antibiotics 10/11/18 09:36 Medical Decision Making - Lab Data Result diagrams: 10/11/18 08:40 10/11/18 08:40 Disposition Clinical Impression: Arm paresthesia, left Condition: (1) Good Instructions: Peripheral Neuropathy (ED), Paresthesia (ED) Additional Instructions: follow up with family Dr in 5 days tylenol or motrin for pain or he can use his pain meds norco/ibuprofin but only use one at a time Forms: Patient Portal Access Time of Disposition: 09:40 Quality - Quality Measures Quality Measures: N/A - Blood Pressure Screening Does Patient Have Any of the Following: No Blood Pressure Classification: Pre-Hypertensive BP Reading Systolic Measurement: 127 Diastolic Measurement: 84 Screening for High Blood Pressure: < Pre-Hypertensive BP, F/U Documented > [G8950] Pre-Hypertensive Follow-up Interventions: Referral to alternative/primary care provider.
[2018-10-11 08:56] LABS: BASO % 1.4 % (0-6); EOS % 6.6 % (0-6); GRAN % 61.1 % (47-80); HEMOGLOBIN 11.3 gm/dl (14.0-18.0); LYMPH % 22.1 % (16-45); MEAN CELL VOLUME 84.1 fl (81-97); MEAN CORPUSCULAR HEMOGLOBIN 26.4 pg (27-33); MEAN CORPUSCULAR HGB CONC 31.4 g/dl (32-36); MEAN PLATELET VOLUME 8.3 fl (7.4-10.4); MONO % 8.8 % (0-9); PLATELET COUNT 238 K/uL (130-400); RED BLOOD COUNT 4.28 M/uL (4.40-5.70); WHITE BLOOD COUNT W/O DIFF 5.6 K/uL (4.2-12.2)
[2018-10-11 08:59] LABS: CREATININE 1.5 mg/dL (0.7-1.2)
== END 2018-10-11 09:58 | disposition home or self-care (01) ==
LOC: ER 08:08
DX: R20.0 Anesthesia of skin (principal); G62.9 Polyneuropathy, unspecified; I48.91 Unspecified atrial fibrillation; J44.9 Chronic obstructive pulmonary disease, unspecified; Z87.891 Personal history of nicotine dependence
CPT/HCPCS: 80048; 85025; 99283